=== PATIENT | male | born 1965 | race Caucasian/White ===

== ENCOUNTER 2023-03-22 08:19 | Day surgery (SDC) | payer OTHER ==
[~2023-03-22] VITALS: Ht 185.4 cm; Wt 84.8 kg
[2023-03-22] MEDS ORDERED: MIDAZOLAM HCL 5 MG/5 ML VIAL ONE ×2 (08:59→09:09)
[2023-03-22] MEDS ORDERED: fentaNYL CITRATE/PF 100 MCG/2 ML AMP ONE ×2 (08:59→09:09)
[2023-03-22] MEDS ORDERED: DIPHENHYDRAMINE INJ 50 MG/ML VIAL ONE (09:08)
[2023-03-22 11:16] VITALS: BP_SYST 120
== END 2023-03-22 10:10 | disposition home or self-care (01) ==
LOC: SDS 08:19 → SMU 08:20 → SDS 10:10
PROVIDERS: ATTEND Internal Medicine
DX: Z12.11 Encounter for screening for malignant neoplasm of colon (principal); D12.3 Benign neoplasm of transverse colon; Z80.0 Family history of malignant neoplasm of digestive organs; E11.9 Type 2 diabetes mellitus without complications; E78.5 Hyperlipidemia, unspecified; Z86.010 Personal history of colon polyps; K64.8 Other hemorrhoids; F17.210 Nicotine dependence, cigarettes, uncomplicated; Z79.82 Long term (current) use of aspirin; Z79.899 Other long term (current) drug therapy
CPT/HCPCS: 45385; 82962; 88305; 99152; G0378; J1200; J2250; J3010